=== PATIENT | male | born 1985 | race Caucasian/White ===

== ENCOUNTER 2022-12-26 21:03 | Emergency (ER) | payer OTHER, SELFPAY ==
[2022-12-26] MEDS ORDERED: Acetaminophen/Codeine 30-300mg Tablet ONE (21:19)
[2022-12-26] MEDS ORDERED: AMOXicillin 250 MG CAP ONE (21:19)
== END 2022-12-26 21:43 | disposition home or self-care (01) ==
LOC: ERS 21:03
DX: S02.5XXA Fracture of tooth (traumatic), initial encounter for closed fracture (principal); I10 Essential (primary) hypertension
CPT/HCPCS: 99282

== ENCOUNTER 2023-01-18 17:30 | Outpatient (CLI) | payer OTHER | END 2023-01-18 17:31 | disposition home or self-care (01) | LOC: SLEEPLAB 17:30 | PROVIDERS: ATTEND Family Medicine | DX: G47.33 Obstructive sleep apnea (adult) (pediatric) (principal); R53.83 Other fatigue; R40.0 Somnolence; R51.9 Headache, unspecified; R09.89 Other specified symptoms and signs involving the circulatory and respiratory systems; F32.9 Major depressive disorder, single episode, unspecified; E66.9 Obesity, unspecified; G47.00 Insomnia, unspecified; I10 Essential (primary) hypertension; R06.83 Snoring; Z68.45 Body mass index [BMI] 70 or greater, adult | CPT/HCPCS: 95800 ==

== ENCOUNTER 2023-03-07 19:30 | Outpatient (CLI) | payer OTHER | END 2023-03-07 19:31 | disposition home or self-care (01) | LOC: SLEEPLAB 19:30 | PROVIDERS: ATTEND Family Medicine | DX: G47.33 Obstructive sleep apnea (adult) (pediatric) (principal); R53.83 Other fatigue; R51.9 Headache, unspecified; F32.A Depression, unspecified; E66.9 Obesity, unspecified; R06.83 Snoring; G47.00 Insomnia, unspecified; I10 Essential (primary) hypertension; F90.9 Attention-deficit hyperactivity disorder, unspecified type; Z68.45 Body mass index [BMI] 70 or greater, adult | CPT/HCPCS: 95811 ==